=== PATIENT | female | born 1955 ===

== ENCOUNTER 2021-10-11 05:20 | Day surgery (SDC) | payer OTHER ==
[~2021-10-11] VITALS: Ht 149.9 cm; Wt 78.9 kg
[~2021-10-11 05:20] MED LIST: BRIMONIDINE TART5 M1 OP; FLUOR OP OP; FOSAMAX70 MG PO; LEVO-T25 MCG PO; REFRESH CLASSI1 EACH OP; XELPROS2.5 ML OP
== END 2021-10-11 22:25 | disposition home or self-care (01) ==
LOC: CIR.AMB 05:20
PROVIDERS: ATTEND Obstetrics & Gynecology Obstetrics
DX: D39.0 Neoplasm of uncertain behavior of uterus (principal); Q51.828 Other congenital malformations of cervix; Z88.8 Allergy status to other drugs, medicaments and biological substances; J45.909 Unspecified asthma, uncomplicated; Z86.73 Personal history of transient ischemic attack (TIA), and cerebral infarction without residual deficits; E03.9 Hypothyroidism, unspecified; E66.9 Obesity, unspecified

== ENCOUNTER 2025-01-17 11:45 | Inpatient (IN) | payer OTHER ==
[~2025-01-17] VITALS: Ht 154.9 cm; Wt 78.9 kg
[2025-01-17 15:14] VITALS: BP 145/83
[2025-01-27] MEDS ORDERED: EPINEPHRINE HCL/PF 1 MG/ML AMPUL IJ ONE (09:15)
[2025-01-27] MEDS ORDERED: CEFAZOLIN SODIUM 1,000 MG VIAL IV ONE (09:15)
[2025-01-27] MEDS ORDERED: POVIDONE-IODINE 118 ML BOTT TOP ONE (09:15)
[2025-01-27] MEDS ORDERED: RINGERS SOLUTION,LACTATED 1,000 ML IV SCH (10:30)
[2025-01-27] MEDS ORDERED: ONDANSETRON HCL 2 MG/ML VIAL IV PRN (10:30)
[2025-01-27] MEDS ORDERED: MORPHINE SULFATE 4 MG,MORPHINE SULFATE 2 MG IV PRN (10:30)
[2025-01-27] MEDS ORDERED: CEFAZOLIN SODIUM 1,000 MG VIAL IV SCH (12:00)
[2025-01-27 13:53] VITALS: BP 145/79
[2025-01-27 14:20] LABS: BASO % 0.3 % (0.1-1.2); EOS # 0.21 (0.04-0.54); EOS % 2.1 % (0.7-7.0); LYMPH # 2.01 (1.18-3.74); LYMPH % 20.3 % (19.3-53.1); MEAN PLATELET VOLUME 12.60 fl (9.4-12.4); MONO # 0.68 (0.24-0.82); MONO % 6.9 % (4.7-12.5); NEUT # 6.95 (1.56-6.13); NEUT % 70.0 % (34.0-71.1); RED CELL DISTRIBUTION WIDTH 12.8 % (11.6-14.4)
[2025-01-27 16:00] VITALS: BP 157/78
[2025-01-28 00:24] VITALS: BP 135/76
[2025-01-28] MEDS ORDERED: CIPRO500 MG PO (07:21)
[2025-01-28] MEDS ORDERED: IBU800 MG PO (07:21)
[2025-01-28] MEDS ORDERED: NEURONTIN300 MG PO (07:22)
[2025-01-28 08:24] VITALS: BP 108/67
[2025-01-28] MEDS ORDERED: ENOXAPARIN SODIUM 40 MG/0.4 ML SYRINGE SUBCUTANEO SCH (09:00)
== END 2025-01-28 09:27 | disposition home or self-care (01) | DRG 743 ==
LOC: O/R 01-27 06:00 → OB/GYN 01-27 06:00 → SURH 01-27 11:45 → OB/GYN 01-27 12:53
PROVIDERS: ADMIT Obstetrics & Gynecology Gynecology; ATTEND Obstetrics & Gynecology Gynecology
PROC: 0JQC0ZZ Repair Pelvic Region Subcutaneous Tissue and Fascia, Open Approach (ICD-10-PCS; 2025-01-27)
PROC: 0USG0ZZ Reposition Vagina, Open Approach (ICD-10-PCS; 2025-01-27)
PROC: 0UT97ZZ Resection of Uterus, Via Natural or Artificial Opening (ICD-10-PCS; principal; 2025-01-27 11:45)
DX: N84.0 Polyp of corpus uteri (principal); N81.11 Cystocele, midline